=== PATIENT | male | born 1995 | race Caucasian/White ===

== ENCOUNTER → 2017-07-15 | Outpatient (CLI) | payer OTHER ==
--- NOTE | 2017-07-15 11:53 | HKNOTE ---
DATE OF SERVICE: 07/15/2017 CHIEF COMPLAINT: Right knee pain. HISTORY OF PRESENT ILLNESS: This is a 22-year-old obese male who is complaining of pain in the righ t knee. He denies any history of trauma. He states that the pain is on the outside of the knee. H e denies any locking, catching or instability. He does not use any assist devices. He does not use any braces. He has not had any previous treatment. He does not take any pain medications. He den ies any groin or back pain. GAIT: Nonantalgic gait reciprocal gait pattern. RIGHT KNEE EXAMINATION: Neutral alignment. Tender over the lateral joint line, nontender over the medial joint line, 0 to 120 degrees range of motion, stable to varus valgus stress, negative Ynes , negative anterior drawer, negative posterior drawer. Positive Mercy's laterally. Motor streng th is 5/5, hamstrings, quadriceps, tibialis anterior, gastrocsoleus. IMAGING: X-rays right knee: 3 views of the right knee demonstrate no fracture or dislocations, no degenerative changes. MRI right knee: There is a tear of the anterior horn of the lateral meniscus . The medial meniscus is intact. The collateral ligaments and menisci and the cruciate ligaments a re intact. IMPRESSION: A 22-year-old male with a right knee anterior horn lateral meniscus tear. PLAN: I discussed treatment options with Mr. Kenyon. I discussed weight loss and whxj-iua-oxrkwok ibuprofen. I also discussed with him [id number]-[id number] bracing should he have instability of his kne e. We will request authorization for physical therapy of the right knee. He was also advised on ho me exercises. He will follow up as needed in the future. Dictated By: TREVA MUNGUIA/KAIA Conf#: [id number] DID#: [id number]
== END | disposition home or self-care (01) ==
LOC: HKI 09:33
PROVIDERS: ATTEND Orthopaedic Surgery Adult Reconstructive Orthopaedic Surgery
DX: S83.281D Other tear of lateral meniscus, current injury, right knee, subsequent encounter (principal); X58.XXXD Exposure to other specified factors, subsequent encounter
CPT/HCPCS: G0463

== ENCOUNTER 2019-01-23 12:42 | Emergency (ER) | payer OTHER ==
[~2019-01-23] VITALS: Ht 180.3 cm; Wt 160.0 kg
[2019-01-23 12:50] VITALS: BP 156/84; PULSE 100; RESP 18; Ht 180.3 cm; Wt 160.0 kg
[2019-01-23] MEDS ORDERED: ORA20G7 BUCCAL (15:03)
[2019-01-23] MEDS ORDERED: ACYC400T2 PO (15:03)
--- NOTE | 2019-01-23 15:09 | ERD ---
ER Documentation Chief Complaint Chief Complaint mouth sores since saturday here for a recheck meds not working HPI 24-year-old male patient with a past medical history of hypertension, metabolic syndrome presents to the ED complaining of mouth sores on the bottom of his tongue that started last night. States he started to have oral burning pain that started about 5 days ago, went to med urgent care, was given a prescription for Magic mouthwash with a compounded antifungal medication. Denies any fever, chills, nausea, vomiting, diarrhea, neck stiffness, abdominal pain, chest pain, shortness of breath. ROS All systems reviewed and are negative except as per history of present illness. Medications Home Meds Active Scripts Acyclovir* (Acyclovir*) 400 Mg Tablet, 400 MG PO TID for 7 Days, TAB Prov:EUGENIO BARRERA PA-C 01/23/19 Benzocaine* (Orajel Maximum*) 1 Applic Gel, 1 APPLIC BUCCAL QID, #1 TUB Prov:EUGENIO BARRERA PA-C 01/23/19 FmHx Family History: No diabetes, No coronary disease Physical Exam Vitals Vital Signs Date Temp Pulse Resp B/P (MAP) Pulse Ox O2 O2 Flow FiO2 Time Delivery Rate 01/23/19 98.1 100 18 156/84 98 12:50 (108) Physical Exam Const: Sfu-kuu-wssdwrjea, well-nourished. In no acute distress. Head: Atraumatic, normocephalic Eyes: Normal Conjunctiva without injection. No purulent discharge. PERRL. EOMI ENT: Normal external ear. Ear canal without erythema. Tympanic membrane pearly persaud without effusion or bulging. Nasal canal clear with normal turbinates. Moist oropharynx without tonsillar exudates. Ulcerated lesions noted on the left side of patient's inferior tongue with no edema, purulent discharge, angioedema noted. Non-erythematous pharynx. Uvula midline. No drooling. No trismus. Neck: Full range of motion. No meningismus. No cervical lymphadenopathy. Resp: Clear to auscultation bilaterally. No wheezing, rhonchi, rales, or crackles. No accessory muscle use. No retractions. Cardio: Regular rate and rhythm. No murmurs, rubs or gallops. Abd: Soft, non tender, non distended. Normal bowel sounds. No palpable masses. No rebound tenderness. No guarding. Skin: No petechiae or rashes Back: No midline tenderness. No CVA tenderness. Ext: No cyanosis, or edema. Neur: Awake and alert. Psych: Normal Mood and Affect Procedures/MDM 24-year-old male patient with a past medical history of hypertension, metabolic syndrome presents the ED complaining of mouth sores that started yesterday. Patient is well and nontoxic-appearing. Patient will be treated for herpes labialis. No angioedema noted. Patient's physical exam include lungs which were clear to auscultation and a normal pulse oximetry. Bilateral ears pearly glover. No tenderness to palpation of tragus or mastoid. Low suspicion for anaphylaxis, mastoiditis, otitis externa, otitis media. Patient is speaking in full sentences. There is a low suspicion for pneumonia, epiglottitis, sinusitis, peritonsillar abscess, hands foot mouth disease, Carlos's angina, retropharyngeal abscess, meningitis, sepsis, acute abdomen or other emergent conditions. Diagnosis: Sore in mouth Discharge medications: Acyclovir Follow up with primary care physician in 1-2 days. Instructed patient to return to the ED sooner for any worsening symptoms. Patient's questions were answered. Patient is hemodynamically stable. Patient understood and agreed with discharge plan. Patient discharged stable. Disclaimer: Inadvertent spelling and grammatical errors are likely due to EHR/dictation software use and do not reflect on the overall quality of patient care. Also, please note that the electronic time recorded on this note does not necessarily reflect the actual time of the patient encounter. Departure Diagnosis: Primary Impression: Sore in mouth Condition: Stable Patient Instructions: Herpes Labialis, Hsv: Type I Referrals: COMM[facility] YOU HAVE RECEIVED A MEDICAL SCREENING EXAM AND THE RESULTS INDICATE THAT YOU DO NOT HAVE A CONDITION THAT REQUIRES URGENT TREATMENT IN THE EMERGENCY DEPARTMENT. FURTHER EVALUATION AND TREATMENT OF YOUR CONDITION CAN WAIT UNTIL YOU ARE SEEN IN YOUR DOCTORS OFFICE WITHIN THE NEXT 1-2 DAYS. IT IS YOUR RESPONSIBILITY TO MAKE AN APPOINTMENT FOR FOLOW-UP CARE. IF YOU HAVE A PRIMARY DOCTOR --you should call your primary doctor and schedule an appointment IF YOU DO NOT HAVE A PRIMARY DOCTOR YOU CAN CALL OUR PHYSICIAN REFERRAL HOTLINE AT IF YOU CAN NOT AFFORD TO SEE A PHYSICIAN YOU CAN CHOSE FROM THE FOLLOWING [facility] [address] [facility] [address] [facility] [address] [facility] [address] [facility] [address] [facility]. [facility] [address] [facility]. [facility] YOU HAVE RECEIVED A MEDICAL SCREENING EXAM AND THE RESULTS INDICATE THAT YOU DO NOT HAVE A CONDITION THAT REQUIRES URGENT TREATMENT IN THE EMERGENCY DEPARTMENT. FURTHER EVALUATION AND TREATMENT OF YOUR CONDITION CAN WAIT UNTIL YOU ARE SEEN IN YOUR DOCTORS OFFICE WITHIN THE NEXT 1-2 DAYS. IT IS YOUR RESPONSIBILITY TO MAKE AN APPOINTMENT FOR FOLOW-UP CARE. IF YOU HAVE A PRIMARY DOCTOR --you should call your primary doctor and schedule and appointment IF YOU DO NOT HAVE A PRIMARY DOCTOR YOU CAN CALL OUR PHYSICIAN REFERRAL HOTLINE AT . IF YOU CAN NOT AFFORD TO SEE A PHYSICIAN YOU CAN CHOSE FROM THE FOLLOWING [facility] INSTITUTIONS: [facility] [address] [place] [address] [facility] [address] [place] [address] [facility] [address] [place] [address] [facility] URGENT CARE/SPECIALTIES Additional Instructions: Call your primary care doctor TOMORROW for an appointment during the next 2-3 days for a referral to see an ears nose throat specialist if symptoms do not improve.See the doctor sooner or return here if your condition worsens before your appointment time. EUGENIO BARRERA PA-C January 23, 2019 15:09
== END 2019-01-23 16:13 | disposition home or self-care (01) ==
LOC: FTE 12:42
DX: K13.79 Other lesions of oral mucosa (principal); I10 Essential (primary) hypertension
CPT/HCPCS: 99283